=== PATIENT | female | born 1995 | race Two or more races ===

== ENCOUNTER 2020-09-11 23:53 | Emergency (ER) | payer BC ==
[~2020-09-11] VITALS: Ht 162.6 cm; Wt 60.1 kg
[2020-09-11 23:56] VITALS: BP 120/60
[2020-09-12] MEDS ORDERED: KETOROLAC 30 MG/1 ML IM ONE (01:00)
[2020-09-12] MEDS ORDERED: KETOROLAC 30 MG/1 ML ONE (01:45)
== END 2020-09-12 03:57 | disposition home or self-care (01) ==
LOC: ED 09-12 01:00
DX: M79.671 Pain in right foot (principal); M79.89 Other specified soft tissue disorders
CPT/HCPCS: 73610; 96372; 99283; J1885